=== PATIENT | female | born 1955 | race Caucasian/White ===

== ENCOUNTER 2022-03-15 14:33 | Outpatient (REF) | payer BC, SELFPAY ==
--- NOTE | 2022-03-15 13:25 | PAPFT_PTH ---
PATIENT: Jasmine Sim LOC: [facility] U#:[id number] AGE/SX: 66/F ROOM: RE03/15/[address]: Rachael Bo MD : [id number] BED: DIS: 03/15/2022 SPEC #: [id number] RECD: 03/15/22 17:50 STATUS: MIRA REQ #: [id number] [place]: 03/15/22 13:[address]: Rachael Bo DEPT: [facility] Cytology RECD BY: Lupe Mendez Tissues: 1 - CX/ENDOCX FOR PAP SMEARS Procedures: PAP THIN PREP/UVM Screening HPV DNA PROBE Comments: [id number]
== END 2022-03-15 14:34 | disposition home or self-care (01) ==
LOC: LBN 14:33
PROVIDERS: Visit Provider Obstetrics & Gynecology
DX: Z12.4 Encounter for screening for malignant neoplasm of cervix (principal); Z11.51 Encounter for screening for human papillomavirus (HPV)
CPT/HCPCS: 88142; 87624

== ENCOUNTER 2022-07-14 01:36 | Outpatient (CLI) | payer BC, SELFPAY ==
[2022-07-14 12:40] LABS: ALT 26 U/L (14-59); AST 26 U/L (15-37); Albumin 4.2 g/dL (3.4-5.0); Alkaline Phosphatase 48 U/L (46-116); Anion Gap 9.1 mmol/L (3-11); BUN 15 mg/dL (7-18); Bilirubin, Total 0.7 mg/dL (0.2-1.0); CO2 27.9 mmol/L (21.0-32.0); CREATININE 0.8 mg/dL (0.55-1.02); Calcium 9.2 mg/dL (8.5-10.1); Calculated LDL 85 mg/dL (<100); Chloride 103 mmol/L (98-107); Cholesterol 200 mg/dL (<200); Estimated GFR 82.23 (mL/min/1.73m2); Glucose 102 mg/dL (74-106); HDL Cholesterol 107 mg/dL (40-60); HGB 14.6 g/dL (11.2-15.7); MCH 32.2 pg (27.0-33.0); MCV 95 fL (80-95); MPV 10.9 fL (8.0-11.0); Platelet Count 178 10^3/uL (130-400); Potassium 3.8 mmol/L (3.5-5.1); RBC 4.53 10^6/uL (3.93-5.22); RDW 11.9 % (11.7-14.6); RDW-SD 41.6 fL; Sodium 140 mmol/L (136-145); Total Protein 7.1 g/dL (6.4-8.2); Triglyceride 44 mg/dL (<150); WBC 4.16 10^3/uL (4.4-10.8)
== END 2022-07-14 01:37 | disposition home or self-care (01) ==
LOC: LOS 01:37
PROVIDERS: PCP Nurse Practitioner; Visit Provider Nurse Practitioner
DX: D64.9 Anemia, unspecified (principal); K58.9 Irritable bowel syndrome, unspecified; Z13.220 Encounter for screening for lipoid disorders
CPT/HCPCS: 36415; 80053; 80061; 85027

== ENCOUNTER 2022-08-08 02:44 | Outpatient (CLI) | payer BC, SELFPAY ==
--- NOTE | 2022-08-08 07:30 | DI.MAMMO_ITS ---
Exam(s) MAMMO SCREENING EXAM: MAMMO SCREENING CLINICAL HISTORY: screening, z12.39. TECHNIQUE: Bilateral full field digital CC and MLO mammographic images were obtained with 3D tomosyn thesis and utilizing computer aided detection (CAD). COMPARISON: Prior mammograms were reviewed. FINDINGS: There has been no significant change in the appearance and distribution of the fibroglandular tissue. No CAD designations. There are no new spiculated masses nor malignant appearing microcalcification groups. Previously described skin mole inferiorly in the left breast is again noted. No new architectural distortion or skin thickening-traction. IMPRESSION: No radiographic evidence of malignancy. BI-RADS Category 2 - Benign Findings Breast Density - Category B - Scattered areas of fibroglandular density Breast density Category C or D implies that the patient has dense breast tissue. Dense breast tissue can make it harder to find cancer on a mammogram. Dense breast tissue is also associated with an incr eased risk of breast cancer. This information about the result of the mammogram report was provided to the patient to raise their awareness. Use this report when you speak with the patient about their risks for breast cancer, which includes their family history. At that time, you may recommend additional screening tests (Ultrasoun d or MRI) as these tests may add significant information. A negative radiographic report should not delay biopsy if a dominant or clinically suspicious mass is present. Up to ten percent of cancers are not identified on mammography. A negative report may reinforce clinical impression. Adenosis and dense breasts may obscure an underlying neoplasm. False positive reports average 6 to 10%. Patient will receive a letter notifying them of these results.
== END 2022-08-08 03:04 ==
PROVIDERS: Visit Provider Nurse Practitioner
DX: Z12.31 Encounter for screening mammogram for malignant neoplasm of breast (principal)
CPT/HCPCS: 77063; 77067

== ENCOUNTER → 2023-08-21 04:07 | Outpatient (CLI) | payer MEDICARE, BC, SELFPAY | PROVIDERS: PCP Nurse Practitioner; Visit Provider Nurse Practitioner | DX: Z12.31 Encounter for screening mammogram for malignant neoplasm of breast (principal) | CPT/HCPCS: 77063; 77067 ==

== ENCOUNTER 2023-08-22 05:08 | Outpatient (CLI) | payer MEDICARE, BC, SELFPAY ==
[2023-08-22 12:33] LABS: Absolute Basophil Count 0.05 10^3/uL (0.0-0.2); Absolute Eosinophil Count 0.06 10^3/uL (0.0-0.7); Absolute Lymphocyte Count 1.27 10^3/uL (1.2-3.4); Absolute Monocyte Count 0.39 10^3/uL (0.1-0.8); Absolute Neutrophil Count 1.82 10^3/uL (1.2-6.7); Basophils % 1.4; Eosinophils % 1.7; HCT 45.3 % (36.0-46.0); HGB 15.2 g/dL (11.2-15.7); Lymphocytes % 35.4; MCH 31.9 pg (27.0-33.0); MCHC 33.6 % (32.0-36.0); MCV 95 fL (80-95); MPV 11.5 fL (8.0-11.0); Monocytes % 10.9; Neutrophils % 50.6; Platelet Count 163 10^3/uL (130-400); RBC 4.77 10^6/uL (3.93-5.22); RDW-SD 42.2 fL; WBC 3.59 10^3/uL (4.4-10.8)
[2023-08-22 12:57] LABS: ALT 30 U/L (14-59); AST 28 U/L (15-37); Albumin 4.1 g/dL (3.4-5.0); Alkaline Phosphatase 50 U/L (46-116); BUN 18 mg/dL (7-18); Bilirubin, Total 0.4 mg/dL (0.2-1.0); CREATININE 0.8 mg/dL (0.55-1.02); Calcium 9.2 mg/dL (8.5-10.1); Calculated LDL 99 mg/dL (<100); Chloride 105 mmol/L (98-107); Cholesterol 203 mg/dL (<200); Estimated GFR 81.72 (mL/min/1.73m2); Glucose 97 mg/dL (74-106); HDL Cholesterol 97 mg/dL (40-60); Potassium 4.6 mmol/L (3.5-5.1); Sodium 143 mmol/L (136-145); Total Protein 7.2 g/dL (6.4-8.2); Triglyceride 38 mg/dL (<150)
== END 2023-08-22 05:09 | disposition home or self-care (01) ==
LOC: LOS 05:08
PROVIDERS: PCP Nurse Practitioner; Visit Provider Nurse Practitioner
DX: Z13.220 Encounter for screening for lipoid disorders (principal); K58.9 Irritable bowel syndrome, unspecified; E78.5 Hyperlipidemia, unspecified
CPT/HCPCS: 36415; 80053; 80061; 85025

== ENCOUNTER 2023-10-11 15:40 | Outpatient (CLI) | payer MEDICARE, BC, SELFPAY ==
--- NOTE | 2023-10-11 14:30 | DI.RAD_ITS ---
Exam(s) XR KNEE RT 3V AP,LAT,LORI EXAM: XR KNEE RT 3V AP,LAT,LORI CLINICAL HISTORY: RIGHT KNEE PAIN. TECHNIQUE: 2D digital imaging was performed. Three views. COMPARISON: No exams were available for comparison FINDINGS: BONES: No acute fracture is present. No bony destructive lesion is seen. JOINTS: The knee is normally aligned. A small joint effusion is seen. Mild narrowing of the medial fe moral tibial joint with mild periarticular spurring. Minimal spurring at the articular aspect of the patella. SOFT TISSUE: Normal. IMPRESSION: Unremar mild degenerative changes and small joint effusion. DATA REPOSITORY: RADIATION DOSE DELIVERED:
== END 2023-10-11 15:41 | disposition home or self-care (01) ==
LOC: DIORS 15:40
PROVIDERS: PCP Nurse Practitioner; Referring Provider Nurse Practitioner; Visit Provider Physician Assistant
DX: M25.561 Pain in right knee (principal); M94.261 Chondromalacia, right knee
CPT/HCPCS: 73562; 99203

== ENCOUNTER → 2023-11-02 00:19 | Outpatient (CLI) | payer MEDICARE, BC, SELFPAY ==
--- NOTE | 2023-11-02 07:15 | DI.MRI_ITS ---
Exam(s) MR LOWER JOINT RT WO EXAM: MR LOWER JOINT RT WO CLINICAL HISTORY: PAIN, internal derangement rt knee, chondromalacia, M23.91, M94.261. TECHNIQUE: Multiplanar multisequence MRI was performed. COMPARISON: CR XR KNEE RT 3V AP,LAT,LORI from 10/11/2023 FINDINGS: BONES: There is no fracture or contusion pattern. Mild spurring from the femoral condyles and tibia l plateaus. JOINTS: Small joint effusion. Joint effusion is present. Articular cartilage: Patellofemoral joint: Thinning of cartilage at patellar apex down to bone. Garcia e high signal in underlying bone. Medial femoral tibial joint: Cartilage irregularity and thinning extending down to involving underly ing bone. Lateral femoral tibial joint: Cartilage defect extending down to bone with underlying cystic area in the noted in the anterior aspect of the lateral femoral condyle. TENDONS: Extensor mechanism: Unremarkable. Medial retinaculum: Unremarkable. Lateral retinaculum: Unremarkable. Popliteus: Unremarkable. MUSCLES: Unremarkable. MENISCI: The medial meniscus is unremarkable. The lateral meniscus is unremarkable. SOFT TISSUES: Small English's cyst. LIGAMENTS: Anterior Cruciate: Unremarkable. Posterior Cruciate: Unremarkable. Medial Collateral:Unremarkable. Lateral Collateral: Unremarkable. 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 No evidence of li gament or meniscal tear. DATA REPOSITORY:
== END ==
PROVIDERS: PCP Nurse Practitioner; Visit Provider Student in an Organized Health Care Education/Training Program
DX: M94.261 Chondromalacia, right knee
CPT/HCPCS: 73721

== ENCOUNTER 2023-12-04 02:54 | Outpatient (CLI) | payer MEDICARE, BC, SELFPAY ==
[2023-12-04 12:30] LABS: Abs Immature Grans 0.01 10^3/uL (0.0-0.06); Absolute Basophil Count 0.06 10^3/uL (0.0-0.2); Absolute Eosinophil Count 0.07 10^3/uL (0.0-0.7); Absolute Lymphocyte Count 1.32 10^3/uL (1.2-3.4); Absolute Monocyte Count 0.49 10^3/uL (0.1-0.8); Absolute Neutrophil Count 2.19 10^3/uL (1.2-6.7); Basophils % 1.4 %; Eosinophils % 1.7 %; HCT 41.5 % (36.0-46.0); HGB 13.9 g/dL (11.2-15.7); Immature Grans % 0.2 %; Lymphocytes % 31.9 %; MCH 31.7 pg (27.0-33.0); MCHC 33.5 % (32.0-36.0); MCV 95 fL (80-95); MPV 11.2 fL (8.0-11.0); Monocytes % 11.8 %; Platelet Count 159 10^3/uL (130-400); RBC 4.38 10^6/uL (3.93-5.22); RDW 11.9 % (11.7-14.6); RDW-SD 41.7 fL; WBC 4.14 10^3/uL (4.4-10.8)
== END 2023-12-04 02:55 | disposition home or self-care (01) ==
LOC: LOS 02:54
PROVIDERS: PCP Nurse Practitioner; Visit Provider Nurse Practitioner
DX: D70.9 Neutropenia, unspecified (principal)
CPT/HCPCS: 36415; 85025

== ENCOUNTER → 2023-12-10 09:21 | Outpatient (BNVA) | payer MEDICARE, BC, SELFPAY | PROVIDERS: PCP Nurse Practitioner; Referring Provider Nurse Practitioner; Visit Provider Student in an Organized Health Care Education/Training Program | DX: M17.11 Unilateral primary osteoarthritis, right knee (principal) | CPT/HCPCS: 99215 ==

== ENCOUNTER 2024-08-26 00:56 | Outpatient (CLI) | payer MEDICARE, BC, SELFPAY ==
--- NOTE | 2024-08-26 06:00 | DI.MAMMO_ITS ---
Exam(s) MAMMO SCREENING EXAM: MAMMO SCREENING CLINICAL HISTORY: screening,z12.39. TECHNIQUE: Bilateral full field digital CC and MLO mammographic images were obtained with 3D tomosyn thesis and utilizing computer aided detection (CAD). COMPARISON: Prior mammograms were reviewed. FINDINGS: There has been no significant change in the appearance and distribution of the fibroglandular tissue. Asymmetric density posterior in the right breast is unchanged from 2018. There are no new spiculated masses nor malignant appearing microcalcification groups. There is no significant architectural distortion nor skin thickening-retraction. IMPRESSION: No radiographic evidence of malignancy. BI-RADS Category 1 - Negative Breast Density - Category B - Scattered areas of fibroglandular density Breast density Category C or D implies that the patient has dense breast tissue. Dense breast tissue can make it harder to find cancer on a mammogram. Dense breast tissue is also associated with an incr eased risk of breast cancer. This information about the result of the mammogram report was provided to the patient to raise their awareness. Use this report when you speak with the patient about their risks for breast cancer, which includes their family history. At that time, you may recommend additional screening tests (Ultrasoun d or MRI) as these tests may add significant information. A negative radiographic report should not delay biopsy if a dominant or clinically suspicious mass is present. Up to ten percent of cancers are not identified on mammography. A negative report may reinforce clinical impression. Adenosis and dense breasts may obscure an underlying neoplasm. False positive reports average 6 to 10%. Patient will receive a letter notifying them of these results.
--- NOTE | 2024-08-26 06:11 | DI.RAD_ITS ---
Exam(s) XR SKULL COMPLETE EXAM: XR SKULL COMPLETE CLINICAL HISTORY: eval bony abnormality,rt forehead lump,chronic,? cause,Q79.9. TECHNIQUE: 2D digital imaging was performed. COMPARISON: No exams were available for comparison FINDINGS: No fracture or other abnormal lucencies are seen. No bony deformities in the frontal region. The si nuses appear clear as visualized. IMPRESSION: Unremarkable radiographs of the skull. DATA REPOSITORY: RADIATION DOSE DELIVERED:
== END 2024-08-26 01:16 ==
LOC: DI 00:56
PROVIDERS: PCP Nurse Practitioner; Visit Provider Nurse Practitioner
DX: Z12.31 Encounter for screening mammogram for malignant neoplasm of breast; Q79.9 Congenital malformation of musculoskeletal system, unspecified
CPT/HCPCS: 77063; 77067; 70260

== ENCOUNTER 2024-09-01 01:54 | Outpatient (CLI) | payer MEDICARE, BC, SELFPAY ==
[2024-09-01 07:32] LABS: Abs Immature Grans 0.01 10^3/uL (0.0-0.06); Absolute Basophil Count 0.07 10^3/uL (0.0-0.2); Absolute Eosinophil Count 0.13 10^3/uL (0.0-0.7); Absolute Lymphocyte Count 1.79 10^3/uL (1.2-3.4); Absolute Monocyte Count 0.48 10^3/uL (0.1-0.8); Basophils % 1.5 %; Eosinophils % 2.7 %; HCT 42.7 % (36.0-46.0); HGB 14.4 g/dL (11.2-15.7); Immature Grans % 0.2 %; Lymphocytes % 37.4 %; MCHC 33.7 % (32.0-36.0); MCV 95 fL (80-95); MPV 9.8 fL (8.0-11.0); Neutrophils % 48.2 %; Platelet Count 174 10^3/uL (130-400); RDW 11.7 % (11.7-14.6); RDW-SD 40.5 fL; WBC 4.78 10^3/uL (4.4-10.8)
[2024-09-01 08:22] LABS: ALT 27 U/L (14-59); AST 25 U/L (15-37); Albumin 4.1 g/dL (3.4-5.0); Alkaline Phosphatase 66 U/L (46-116); Anion Gap 5.7 mmol/L (3-11); BUN 17 mg/dL (7-18); Bilirubin, Total 0.5 mg/dL (0.2-1.0); CO2 31.3 mmol/L (21.0-32.0); CREATININE 0.8 mg/dL (0.55-1.02); Calcium 9.3 mg/dL (8.5-10.1); Calculated LDL 87 mg/dL (<100); Chloride 105 mmol/L (98-107); Cholesterol 220 mg/dL (<200); Estimated GFR 81.21 (mL/min/1.73m2); Glucose 101 mg/dL (74-106); HDL Cholesterol 124 mg/dL (>or=50); Sodium 142 mmol/L (136-145); Total Protein 7.4 g/dL (6.4-8.2); Triglyceride 48 mg/dL (<150); Vitamin D 25 Total 56 ng/mL (30-100)
== END 2024-09-01 01:55 | disposition home or self-care (01) ==
PROVIDERS: PCP Nurse Practitioner; Visit Provider Nurse Practitioner
DX: Z13.220 Encounter for screening for lipoid disorders (principal); E55.9 Vitamin D deficiency, unspecified; R79.9 Abnormal finding of blood chemistry, unspecified; E78.5 Hyperlipidemia, unspecified
CPT/HCPCS: 36415; 80053; 80061; 82306; 85025

== ENCOUNTER 2024-09-15 13:53 | Outpatient (CLI) | payer MEDICARE, BC, SELFPAY ==
[2024-09-15 14:03] LABS: Abs Immature Grans 0.02 10^3/uL (0.0-0.06); Absolute Basophil Count 0.06 10^3/uL (0.0-0.2); Absolute Eosinophil Count 0.06 10^3/uL (0.0-0.7); Absolute Lymphocyte Count 1.44 10^3/uL (1.2-3.4); Absolute Monocyte Count 0.53 10^3/uL (0.1-0.8); Absolute Neutrophil Count 3.78 10^3/uL (1.2-6.7); HCT 41.8 % (36.0-46.0); HGB 13.9 g/dL (11.2-15.7); Immature Grans % 0.3 %; Lymphocytes % 24.4 %; MCH 31.8 pg (27.0-33.0); MCHC 33.3 % (32.0-36.0); MCV 96 fL (80-95); MPV 10.6 fL (8.0-11.0); Neutrophils % 64.3 %; Platelet Count 157 10^3/uL (130-400); RBC 4.37 10^6/uL (3.93-5.22); RDW 11.9 % (11.7-14.6); RDW-SD 41.5 fL; WBC 5.89 10^3/uL (4.4-10.8)
[2024-09-15 14:34] LABS: ALT 22 U/L (14-59); AST 24 U/L (15-37); Alkaline Phosphatase 58 U/L (46-116); Amylase 47 U/L (25-115); Anion Gap 7.5 mmol/L (3-11); BUN 13 mg/dL (7-18); Bilirubin, Total 0.5 mg/dL (0.2-1.0); CO2 29.5 mmol/L (21.0-32.0); CREATININE 0.8 mg/dL (0.55-1.02); Calcium 9.4 mg/dL (8.5-10.1); Chloride 105 mmol/L (98-107); Estimated GFR 80.71 (mL/min/1.73m2); Glucose 114 mg/dL (74-106); Lipase 60 U/L (<78); Potassium 4.1 mmol/L (3.5-5.1); Sodium 142 mmol/L (136-145)
== END 2024-09-15 13:54 | disposition home or self-care (01) ==
LOC: LBO 13:54
PROVIDERS: PCP Nurse Practitioner; Visit Provider Nurse Practitioner Family
DX: R10.9 Unspecified abdominal pain (principal)
CPT/HCPCS: 36415; 80053; 83690; 82150; 85025

== ENCOUNTER 2024-09-17 01:50 | Outpatient (CLI) | payer MEDICARE, BC, SELFPAY ==
--- NOTE | 2024-09-17 07:00 | DI.US_ITS ---
Exam(s) US ABDOMEN LIMITED EXAM: US ABDOMEN LIMITED CLINICAL HISTORY: evaluate pathology,abd pain,r10.9 TECHNIQUE: Ultrasound abdomen performed using standard protocol. COMPARISON: No exams were available for comparison FINDINGS: There is no ascites evident. LIVER: There are no hepatic lesions evident nor dilatation of intrahepatic ducts. GALLBLADDER/BILIARY: Gallbladder surgically absent. The common hepatic duct isnot dilated, measuring tomm at the level of dolly hepatis. PANCREAS: There is no evidence of pancreatic mass nor dilatation of the pancreatic duct. RIGHT KIDNEY:No evidence of solid mass, calculus, nor hydronephrosis. No cortical cysts evident. IMPRESSION: 1. Gallbladder surgically absent. The biliary tree is not dilated. 2. No other significant ultrasound findings in the right upper quadrant. 3. There is no ascites. DATA REPOSITORY:
== END 2024-09-17 02:10 ==
LOC: DI 01:50
PROVIDERS: PCP Nurse Practitioner; Visit Provider Nurse Practitioner Family
DX: R10.9 Unspecified abdominal pain (principal)
CPT/HCPCS: 76705

== ENCOUNTER 2024-09-30 16:16 | Outpatient (REF) | payer MEDICARE, BC, SELFPAY ==
[2024-09-30 21:15] LABS: Abs Immature Grans 0.01 10^3/uL (0.0-0.06); Absolute Basophil Count 0.05 10^3/uL (0.0-0.2); Absolute Lymphocyte Count 1.63 10^3/uL (1.2-3.4); Absolute Monocyte Count 0.57 10^3/uL (0.1-0.8); Absolute Neutrophil Count 3.04 10^3/uL (1.2-6.7); Basophils % 0.9 %; Eosinophils % 1.9 %; HCT 41.9 % (36.0-46.0); Immature Grans % 0.2 %; Lymphocytes % 30.2 %; MCH 31.9 pg (27.0-33.0); MCHC 33.4 % (32.0-36.0); MCV 95 fL (80-95); Monocytes % 10.6 %; Neutrophils % 56.2 %; Platelet Count 161 10^3/uL (130-400); RBC 4.39 10^6/uL (3.93-5.22); RDW 11.9 % (11.7-14.6); RDW-SD 41.6 fL
[2024-09-30 21:17] LABS: Bilirubin Negative (Negative); Blood Negative (Negative); Clarity Clear (Clear); Glucose Negative (Negative); Ketones Negative (Negative); Leukocyte Esterase Negative (Negative); Nitrite Negative (Negative); Urobilinogen 0.2 mg/dL (Up to 0.2); pH 5.5 (5-8)
[2024-09-30 21:20] LABS: Lipase 53 U/L (<78)
[2024-09-30 21:26] LABS: ALT 23 U/L (14-59); AST 22 U/L (15-37); Alkaline Phosphatase 67 U/L (46-116); Anion Gap 9.3 mmol/L (3-11); BUN 19 mg/dL (7-18); Bilirubin, Total 0.2 mg/dL (0.2-1.0); CO2 28.7 mmol/L (21.0-32.0); CREATININE 0.7 mg/dL (0.55-1.02); Calcium 9.2 mg/dL (8.5-10.1); Chloride 106 mmol/L (98-107); Estimated GFR 94.73 (mL/min/1.73m2); Glucose 111 mg/dL (74-106); Potassium 4.1 mmol/L (3.5-5.1); Sodium 144 mmol/L (136-145)
== END 2024-09-30 16:17 | disposition home or self-care (01) ==
LOC: LBN 16:16
PROVIDERS: PCP Nurse Practitioner; Visit Provider Physician Assistant
DX: R10.11 Right upper quadrant pain (principal); R10.9 Unspecified abdominal pain; R39.89 Other symptoms and signs involving the genitourinary system
CPT/HCPCS: 80053; 83690; 81003; 85025

== ENCOUNTER 2024-10-01 00:51 | Outpatient (CLI) | payer MEDICARE, BC, SELFPAY ==
[2024-10-01] MEDS: Barium Sulfate 2% W/V-Creamy Vanilla Smoothie 450 ML BTL PO (12:36)
[2024-10-01] MEDS: Barium Sulfate 2% W/V-Berry Smoothie 450 ML BTL PO (12:38)
[2024-10-01] MEDS: Omnipaque 350 MG/ML 100 ML BTL IJ (14:53)
[2024-10-01] MEDS: Normal Saline - Diluent 50 ML VIAL IJ (15:03)
--- NOTE | 2024-10-01 16:05 | DI.CT_ITS ---
Exam(s) CT ABDOMEN PELVIS W EXAM: CT ABDOMEN PELVIS W CLINICAL HISTORY: RUQ Pain, ABD PAIN R10.9. TECHNIQUE: Imaging Protocol: Axial computed tomography images with coronal and sagittal reformatted images were created and reviewed CONTRAST MATERIAL: Intravenous: Omnipaque 350 Contrast volume:75 ml Oral: yes COMPARISON: No exams were available for comparison FINDINGS: ABDOMEN and PELVIS: Lung Bases: No 7 millimeter nodule noted at the left lung base. Liver: Normal density. No suspicious mass. Gallbladder and biliary tract: Cholecystectomy. No biliary dilation. Pancreas: Normal density. No abnormal calcifications or inflammatory process. No evidence of mass. Spleen: Normal. Kidneys: Normal size, contour and axis. No radiodense stones. No obstructive uropathy. No suspicious masses seen. Adrenal glands: No masses seen. Vasculature: Abdominal aorta non-dilated. Soft tissues: Unremarkable. Bladder: No gross wall thickening. No calculi.No focal mass. Bowel: No obstruction. No bowel wall thickening. The appendix appears normal. No right lower quad rant inflammatory changes. Increased stool seen throughout the colon consistent with constipation.. Peritoneal cavity: No ascites. No focal collection. No mesenteric inflammatory response. No free air . Bones: Unremarkable for age. Reproductive organs: Unremarkable. Lymph nodes: No pathologically enlarged lymph nodes. IMPRESSION:: No acute abnormality in the abdomen or pelvis. Increased quantity of stool throughout the colon consistent with constipation. 7 millimeter nodule right lower lobe Solitary noncalcified solid nodules measuring 6???8 mm in patients with low clinical risk are recomme nded to undergo initial follow-up at 6???12 months depending on size, morphology, and patient prefere nce (grade 1C: strong recommendation, low- or [id number] evidence). (Nelia et al., 2017) Unexpected findings RADIATION DOSE DELIVERED: Total DLP DATA REPOSITORY: All CT scans at this facility are submitted to the National Radiology Data Registry (NRDR) Dose Index Registry (DIR) with the [employer] ([employer]). RADIATION OPTIMIZATION: All CT scans at this facility use at least one of these dose optimization te chniques: automated exposure control; mA and/or kV adjustment per patient size (includes targeted exa ms where dose is matched to clinical indication); or iterative reconstruction.
== END 2024-10-01 01:11 ==
LOC: DI 00:53
PROVIDERS: PCP Nurse Practitioner; Visit Provider Physician Assistant
DX: R91.8 Other nonspecific abnormal finding of lung field (principal); R10.9 Unspecified abdominal pain
CPT/HCPCS: 74177; J3490

== ENCOUNTER 2024-11-18 14:41 | Outpatient (REF) | payer MEDICARE, BC, SELFPAY ==
[2024-11-18 18:01] LABS: Bacteria Many HPF (Negative); C & S Indicated? C&S Done As Ordered; Casts Negative LPF (Negative); Crystals Negative HPF (Negative); Epithelial Cells Rare HPF (Negative); Mucus Negative (Negative)
== END 2024-11-18 14:42 | disposition home or self-care (01) ==
LOC: LBN 14:41
PROVIDERS: PCP Nurse Practitioner; Visit Provider Nurse Practitioner Family
DX: R30.0 Dysuria (principal); R31.29 Other microscopic hematuria
CPT/HCPCS: 87077; 81015; 87086; 87186

== ENCOUNTER 2024-12-11 01:29 | Outpatient (CLI) | payer MEDICARE, BC, SELFPAY ==
--- NOTE | 2024-12-11 07:45 | DI.DEXA_ITS ---
Exam(s) XR DEXA BONE DENSITY W/WO PRITESH EXAM: XR DEXA BONE DENSITY W/WO PRITESH CLINICAL HISTORY: SCREENING FOR OSTEOPOROSIS IN ASYMPTOMATIC MENOPAUSAL STATUS TECHNIQUE: [employer] C densitometer analysis of left hip, lumbar spine and left forearm. Lateral survey image of the thoracic and lumbar spine. COMPARISON: DEXA from 04/17/2019 DEXA from 08/02/2021 outside examinations FINDINGS: Lateral view of the thoracic and lumbar spine shows no evidence of compression fractures. Bone mineral density measurements of the lumbar spine correspond to a total T- score of -0.3, in the normal range. This represents a 4.0 percent decrease from 2021 and a 7.9 percent decrease from 2018. Bone mineral density measurements of the left hip correspond to a total T-score of 0.0. This represents a 7.5 percent decrease from 2021 and 6.5 percent decrease from 2018. The femoral neck T-score is 0.5, in the normal range. Theleft forearm bone mineral density measurements correspond to a T-score of the distal 3rd of -1.7, in the osteopenic range. The forearm was not analyzed on the prior exams.. IMPRESSION: Normal bone mineral density of the spine and hip. Osteopenia of the forearm.
== END 2024-12-11 01:49 ==
LOC: DI 01:29
PROVIDERS: PCP Nurse Practitioner; Visit Provider Nurse Practitioner
DX: Z13.820 Encounter for screening for osteoporosis (principal); Z78.0 Asymptomatic menopausal state; M85.89 Other specified disorders of bone density and structure, multiple sites
CPT/HCPCS: 77080